=== PATIENT | female | born 1985 | race Caucasian/White ===

== ENCOUNTER 2022-12-05 08:52 | Outpatient (CLI) | payer BC, SELFPAY ==
[2022-12-05 15:51] LABS: Glucose* 88 mg/dL (60-115)
[2022-12-05 16:42] LABS: Vitamin B12* 544 pg/mL (243-894)
== END 2022-12-05 08:53 | disposition home or self-care (01) ==
PROVIDERS: PCP Nurse Practitioner Family; Visit Provider Nurse Practitioner Family
DX: R20.2 Paresthesia of skin (principal)
CPT/HCPCS: 82607; 82947; 84443